=== PATIENT | female | born 1985 | race Caucasian/White ===

== ENCOUNTER 2019-02-25 02:46 | Inpatient (IN) ==
[2019-02-25 03:25] LABS: URINE SOURCE CLEAN CATCH
[2019-02-25 03:37] LABS: BE -16.2 mmoll (-3.0-3.0); BLOOD TYPE ARTERIAL; HCO3-(ACT) 11.9 mmoll (20.0-26.0); METHB 0.5 % (0.0-1.5); O2(CT) 16.9 mL/dL (15.0-23.0); O2HB 82.4 % (95.0-99.0); PCO2(98.6) 40 mmHg (35-45); PO2(98.6) 57 mmHg (60-100); SAMPLE BLOOD; SRATE 14 BPM; THB 14.6 g/dL (11.5-17.4); TVOL 550 mL
[2019-02-25 03:41] LABS: BILIRUBIN URINE NEGATIVE (NEGATIVE); BLOOD URINE SMALL (NEGATIVE); COLOR STRAW; GLUCOSE URINE 1000 mg/dL (NEGATIVE); KETONE URINE NEGATIVE (NEGATIVE); LEUKOCYTES URINE NEGATIVE (NEGATIVE); NITRITE URINE NEGATIVE (NEGATIVE); PH URINE 6.5; PROTEIN URINE NEGATIVE (NEGATIVE); SP GRAVITY URINE 1.005; TURBIDITY URINE CLEAR (CLEAR); UR EPITHELIAL CELLS <10 /HPF (<10); URINE BACTERIA NEGATIVE /HPF; URINE RBC <10 /HPF (<10); URINE WBC <10 /HPF (<10); UROBILINOGEN URINE NORMAL (NORMAL)
[2019-02-25 03:53] LABS: ACETAMINOPHEN < 1.2 ug/mL (10-30); AGAP 27; ALBUMIN 3.6 g/dL (3.5-5.0); ALKALINE PHOSPHATASE 212 U/L (32-104); BUN 6 mg/dL (8-22); CALCIUM 8.6 mg/dL (8.8-10.2); COSMO 292; CREATININE 0.7 mg/dL (0.5-0.9); ESTIMATED GFR > 60; GLUCOSE 243 mg/dL (70-104); GOT 278 U/L (10-30); GPT 73 U/L (10-36); SALICYLATES < 3.00 mg/dL (3-10); TCO2 13 mmol/L (25-35); TOTAL BILIRUBIN < 0.15 mg/dL (0.20-1.00)
[2019-02-25 04:04] LABS: CHLORIDE 101 mmol/L (98-107); POTASSIUM 5.5 mmol/L (3.5-5.1); SODIUM 140 mmol/L (136-145)
[2019-02-25 04:13] LABS: BASO# 0.11 X1000 (0.0-0.2); CK INDEX 0.8 (0.0-2.5); CK-MB 1.85 ng/mL (0.0-5.0); EOS# 0.17 X1000 (0.0-0.7); EOS% 1.5 % (0.0-10.0); HEMOGLOBIN 15.9 g/dL (12.0-16.0); IMM GRAN# 0.16 X1000 (0.0-0.04); IMM GRAN% 1.4 % (0.0-0.5); LYMPH# 4.59 X1000 (1.2-3.4); LYMPH% 40.3 % (20.5-51.1); MCH 33.5 PG (27-31); MCHC 31.8 g/dL (33-37); MCV 105.5 FL (81-99); MONO# 0.63 X1000 (0.11-0.59); MONO% 5.5 % (1.7-9.3); MPV 10.2 FL (7.4-10.4); NEUT# 5.73 X1000 (1.4-6.5); NEUT% 50.3 % (42.2-75.2); PLT 320 X1000 (130-400); RBC 4.74 XMIL (4.2-5.4); RDW 13.9 % (11.5-14.5); WBC 11.39 X1000 (4.8-10.8)
[2019-02-25 04:25] LABS: UR AMPHETAMINES QUAL NONE DETECTED (NONE DETECT); UR BARBITUATES QUAL NONE DETECTED (NONE DETECT); UR BENZODIAZEPIN QUAL NONE DETECTED (NONE DETECT); UR CANNABINOIDS QUAL NONE DETECTED (NONE DETECT); UR COCAINE QUAL NONE DETECTED (NONE DETECT); UR METHADONE QUAL NONE DETECTED (NONE DETECT); UR METHAMPHETAMINE QUAL NONE DETECTED (NONE DETECT); UR OPIATES QUAL NONE DETECTED (NONE DETECT); UR OXYCODONE QUAL NONE DETECTED (NONE DETECT); UR PCP QUAL NONE DETECTED (NONE DETECT); UR PROPOXYPHENE QUAL NONE DETECTED (NONE DETECT); UR TCA QUAL NONE DETECTED (NONE DETECT)
[2019-02-25 05:46] LABS: ALLEN TEST YES; BE -8.3 mmoll (-3.0-3.0); BLOOD TYPE ARTERIAL; HCO3-(ACT) 17.7 mmoll (20.0-26.0); METHB 0.9 % (0.0-1.5); O2(CT) 16.6 mL/dL (15.0-23.0); PCO2(98.6) 41 mmHg (35-45); SAMPLE BLOOD; SAO2 76.5 % (95.0-100.0); SRATE 16 BPM; THB 15.9 g/dL (11.5-17.4); TVOL 500 mL; pH(98.6) 7.26 (7.35-7.45)
[2019-02-25 05:47] LABS: MODALITY VENTILATOR; O2HB 74.5 % (95.0-99.0); PO2(98.6) 43 mmHg (60-100)
[2019-02-25 06:09] LABS: URINE SOURCE CATH
[2019-02-25 06:11] LABS: BILIRUBIN URINE NEGATIVE (NEGATIVE); BLOOD URINE TRACE (NEGATIVE); COLOR YELLOW; GLUCOSE URINE >1000 mg/dL (NEGATIVE); KETONE URINE NEGATIVE (NEGATIVE); LEUKOCYTES URINE NEGATIVE (NEGATIVE); NITRITE URINE NEGATIVE (NEGATIVE); PROTEIN URINE TRACE mg/dL (NEGATIVE); TURBIDITY URINE CLEAR (CLEAR); UROBILINOGEN URINE NORMAL (NORMAL)
[2019-02-25 06:16] LABS: UR EPITHELIAL CELLS <10 /HPF (<10); URINE BACTERIA NEGATIVE /HPF; URINE RBC <10 /HPF (<10); URINE WBC <10 /HPF (<10)
[2019-02-25 06:38] LABS: MODALITY VENTILATOR
[2019-02-25 06:39] LABS: pH(98.6) 7.11 (7.35-7.45)
[2019-02-25 06:40] LABS: SAO2 85.3 % (95.0-100.0)
[2019-02-25 10:37] LABS: I-STAT BE -6 mmoll (-2-3); I-STAT GLUCOSE 139 mg/dL (70-105); I-STAT K 3.6 mmoll (3.5-4.9); I-STAT SODIUM 135 mmoll (138-146); I-STAT TCO2 21 mmoll (23-27); I-STAT pH 7.374 (7.350-7.450)
[2019-02-25 11:56] LABS: AGAP 16; ALBUMIN 2.6 g/dL (3.5-5.0); ALKALINE PHOSPHATASE 168 U/L (32-104); BUN 8 mg/dL (8-22); CALCIUM 7.2 mg/dL (8.8-10.2); CHLORIDE 99 mmol/L (98-107); COSMO 263; CREATININE 0.6 mg/dL (0.5-0.9); ESTIMATED GFR > 60; GLUCOSE 135 mg/dL (70-104); GOT 382 U/L (10-30); GPT 100 U/L (10-36); POTASSIUM 3.9 mmol/L (3.5-5.1); SODIUM 131 mmol/L (136-145); TCO2 16 mmol/L (25-35); TOTAL BILIRUBIN 0.34 mg/dL (0.20-1.00); TOTAL PROTEIN 5.3 g/dL (6.3-8.3)
[2019-02-26 04:29] LABS: ALLEN TEST YES; BE 0.6 mmoll (-3.0-3.0); BLOOD TYPE ARTERIAL; HCO3-(ACT) 25.4 mmoll (20.0-26.0); METHB 1.5 % (0.0-1.5); O2HB 97.1 % (95.0-99.0); PCO2(98.6) 27 mmHg (35-45); PO2(98.6) 342 mmHg (60-100); SAMPLE BLOOD; SAO2 99.9 % (95.0-100.0); SRATE 20 BPM; THB 15.5 g/dL (11.5-17.4); TVOL 550 mL; pH(98.6) 7.52 (7.35-7.45)
[2019-02-26 04:30] LABS: MODALITY VENTILATOR
[2019-02-26 05:00] LABS: AGAP 18; BUN 6 mg/dL (8-22); CHLORIDE 94 mmol/L (98-107); COSMO 266; CREATININE 0.8 mg/dL (0.5-0.9); ESTIMATED GFR > 60; GLUCOSE 164 mg/dL (70-104); MAGNESIUM 1.8 mg/dL (1.5-2.7); POTASSIUM 2.9 mmol/L (3.5-5.1); SODIUM 132 mmol/L (136-145); TCO2 20 mmol/L (25-35)
[2019-02-26 05:04] LABS: CALCIUM 7.3 mg/dL (8.8-10.2)
[2019-02-26 05:15] LABS: BASO# 0.07 X1000 (0.0-0.2); BASO% 0.3 % (0.0-0.8); EOS# 0.02 X1000 (0.0-0.7); EOS% 0.1 % (0.0-10.0); HEMATOCRIT 42.7 % (37.0-47.0); HEMOGLOBIN 14.3 g/dL (12.0-16.0); IMM GRAN% 0.4 % (0.0-0.5); LYMPH# 2.39 X1000 (1.2-3.4); LYMPH% 8.7 % (20.5-51.1); MCH 33.7 PG (27-31); MCHC 33.5 g/dL (33-37); MCV 100.7 FL (81-99); MONO# 0.48 X1000 (0.11-0.59); MONO% 1.7 % (1.7-9.3); MPV 10.3 FL (7.4-10.4); NEUT# 24.45 X1000 (1.4-6.5); NEUT% 88.8 % (42.2-75.2); PLT 294 X1000 (130-400); RBC 4.24 XMIL (4.2-5.4); RDW 13.4 % (11.5-14.5); WBC 27.51 X1000 (4.8-10.8)
[2019-02-26 05:26] LABS: CHOLESTEROL 140 mg/dL (0-200); HDL 76 mg/dL (45-65); LDL 10 mg/dL; TRIGLYCERIDES 271 mg/dL (35-135); VLDL 54 mg/dL
[2019-02-26 07:37] LABS: BANDS 10 % (0-1); LYMPHS 14 % (21-51); SEGS 76 % (42-75)
[2019-02-27 04:28] LABS: ALLEN TEST YES; BE -2.8 mmoll (-3.0-3.0); BLOOD TYPE ARTERIAL; HCO3-(ACT) 22.7 mmoll (20.0-26.0); O2(CT) 17.3 mL/dL (15.0-23.0); O2HB 97.3 % (95.0-99.0); PCO2(98.6) 28 mmHg (35-45); PO2(98.6) 156 mmHg (60-100); SAMPLE BLOOD; SAO2 99.8 % (95.0-100.0); SRATE 20 BPM; THB 12.4 g/dL (11.5-17.4); TVOL 550 mL; pH(98.6) 7.46 (7.35-7.45)
[2019-02-27 04:29] LABS: MODALITY VENTILATOR
[2019-02-27 06:53] LABS: BASO# 0.28 X1000 (0.0-0.2); BASO% 1.6 % (0.0-0.8); EOS% 1.1 % (0.0-10.0); HEMATOCRIT 40.8 % (37.0-47.0); HEMOGLOBIN 13.4 g/dL (12.0-16.0); IMM GRAN# 0.14 X1000 (0.0-0.04); IMM GRAN% 0.8 % (0.0-0.5); LYMPH# 1.47 X1000 (1.2-3.4); LYMPH% 8.2 % (20.5-51.1); MCH 35.4 PG (27-31); MCHC 32.8 g/dL (33-37); MCV 107.7 FL (81-99); MONO% 3.9 % (1.7-9.3); MPV 10.9 FL (7.4-10.4); NEUT# 15.06 X1000 (1.4-6.5); NEUT% 84.4 % (42.2-75.2); PLT 156 X1000 (130-400); RBC 3.79 XMIL (4.2-5.4); RDW 14.5 % (11.5-14.5); WBC 17.85 X1000 (4.8-10.8)
[2019-02-27 09:01] LABS: AGAP 12; ALB/GLOB RATIO 0.9; ALBUMIN 2.5 g/dL (3.5-5.0); ALKALINE PHOSPHATASE 109 U/L (32-104); BUN 7 mg/dL (8-22); CALCIUM 7.8 mg/dL (8.8-10.2); CHLORIDE 100 mmol/L (98-107); COSMO 265; CREATININE 0.7 mg/dL (0.5-0.9); ESTIMATED GFR > 60; GLUCOSE 144 mg/dL (70-104); GOT 38 U/L (10-30); GPT 40 U/L (10-36); POTASSIUM 3.7 mmol/L (3.5-5.1); SODIUM 132 mmol/L (136-145); TCO2 20 mmol/L (25-35); TOTAL BILIRUBIN 1.11 mg/dL (0.20-1.00); TOTAL PROTEIN 5.4 g/dL (6.3-8.3)
[2019-02-28 04:20] LABS: ALLEN TEST YES; BE -1.9 mmoll (-3.0-3.0); BLOOD TYPE ARTERIAL; HCO3-(ACT) 23.4 mmoll (20.0-26.0); METHB 1.4 % (0.0-1.5); O2(CT) 14.1 mL/dL (15.0-23.0); O2HB 96.3 % (95.0-99.0); PCO2(98.6) 33 mmHg (35-45); PO2(98.6) 106 mmHg (60-100); SAMPLE BLOOD; SAO2 99.4 % (95.0-100.0); SRATE 14 BPM; THB 10.3 g/dL (11.5-17.4); TVOL 550 mL; pH(98.6) 7.43 (7.35-7.45)
[2019-02-28 04:23] LABS: MODALITY VENTILATOR
[2019-02-28 06:46] LABS: AGAP 6; ALB/GLOB RATIO 0.8; ALBUMIN 2.2 g/dL (3.5-5.0); ALKALINE PHOSPHATASE 123 U/L (32-104); BUN 10 mg/dL (8-22); CALCIUM 7.7 mg/dL (8.8-10.2); CHLORIDE 108 mmol/L (98-107); COSMO 277; CREATININE 0.7 mg/dL (0.5-0.9); ESTIMATED GFR > 60; GLUCOSE 109 mg/dL (70-104); GOT 39 U/L (10-30); GPT 30 U/L (10-36); POTASSIUM 3.5 mmol/L (3.5-5.1); SODIUM 139 mmol/L (136-145); TCO2 25 mmol/L (25-35); TOTAL BILIRUBIN 0.49 mg/dL (0.20-1.00); TOTAL PROTEIN 5.1 g/dL (6.3-8.3)
[2019-02-28 09:13] LABS: BASO# 0.01 X1000 (0.0-0.2); BASO% 0.1 % (0.0-0.8); EOS# 0.14 X1000 (0.0-0.7); EOS% 1.7 % (0.0-10.0); HEMATOCRIT 30.1 % (37.0-47.0); HEMOGLOBIN 9.3 g/dL (12.0-16.0); IMM GRAN# 0.03 X1000 (0.0-0.04); IMM GRAN% 0.4 % (0.0-0.5); LYMPH# 0.68 X1000 (1.2-3.4); MCH 33.3 PG (27-31); MCHC 30.9 g/dL (33-37); MCV 107.9 FL (81-99); MONO# 0.34 X1000 (0.11-0.59); MPV 10.5 FL (7.4-10.4); NEUT# 7.28 X1000 (1.4-6.5); NEUT% 85.8 % (42.2-75.2); PLT 135 X1000 (130-400); RBC 2.79 XMIL (4.2-5.4); WBC 8.48 X1000 (4.8-10.8)
[2019-02-28 10:14] LABS: BANDS 9 % (0-1); LYMPHS 11 % (21-51); MONO 1 % (1-9); SEGS 79 % (42-75)
[2019-02-28 10:15] LABS: HYPOCHROM 1+
[2019-02-28 10:23] LABS: HEPATITIS PROFILE ACUTE SEE COMMENTS
[2019-02-28 10:55] LABS: ALLEN TEST YES; BE 1.5 mmoll (-3.0-3.0); BLOOD TYPE ARTERIAL; HCO3-(ACT) 26.1 mmoll (20.0-26.0); METHB 0.7 % (0.0-1.5); O2(CT) 16.6 mL/dL (15.0-23.0); O2HB 97.3 % (95.0-99.0); PCO2(98.6) 33 mmHg (35-45); PO2(98.6) 118 mmHg (60-100); SAMPLE BLOOD; SAO2 99.7 % (95.0-100.0); pH(98.6) 7.48 (7.35-7.45)
[2019-02-28 10:57] LABS: MODALITY VENTILATOR
[2019-03-01 04:39] LABS: ALLEN TEST YES; BE -2.7 mmoll (-3.0-3.0); BLOOD TYPE ARTERIAL; HCO3-(ACT) 22.7 mmoll (20.0-26.0); METHB 0.9 % (0.0-1.5); O2(CT) 17.9 mL/dL (15.0-23.0); O2HB 94.4 % (95.0-99.0); PCO2(98.6) 36 mmHg (35-45); PO2(98.6) 73 mmHg (60-100); SAMPLE BLOOD; SAO2 97.2 % (95.0-100.0); THB 13.5 g/dL (11.5-17.4); pH(98.6) 7.39 (7.35-7.45)
[2019-03-01 04:41] LABS: MODALITY COOL AEROSOL
[2019-03-01 05:27] LABS: BASO# 0.01 X1000 (0.0-0.2); BASO% 0.2 % (0.0-0.8); EOS# 0.11 X1000 (0.0-0.7); EOS% 2.2 % (0.0-10.0); HEMATOCRIT 32.2 % (37.0-47.0); HEMOGLOBIN 9.9 g/dL (12.0-16.0); IMM GRAN# 0.04 X1000 (0.0-0.04); IMM GRAN% 0.8 % (0.0-0.5); LYMPH# 0.62 X1000 (1.2-3.4); LYMPH% 12.4 % (20.5-51.1); MCH 33.3 PG (27-31); MCHC 30.7 g/dL (33-37); MCV 108.4 FL (81-99); MONO# 0.39 X1000 (0.11-0.59); MONO% 7.8 % (1.7-9.3); NEUT# 3.81 X1000 (1.4-6.5); NEUT% 76.6 % (42.2-75.2); PLT 138 X1000 (130-400); RBC 2.97 XMIL (4.2-5.4); RDW 13.8 % (11.5-14.5); WBC 4.98 X1000 (4.8-10.8)
[2019-03-01 05:57] LABS: AGAP 13; ALBUMIN 2.8 g/dL (3.5-5.0); ALKALINE PHOSPHATASE 116 U/L (32-104); BUN 12 mg/dL (8-22); CALCIUM 8.1 mg/dL (8.8-10.2); CHLORIDE 111 mmol/L (98-107); COSMO 288; CREATININE 0.7 mg/dL (0.5-0.9); ESTIMATED GFR > 60; GLUCOSE 82 mg/dL (70-104); GOT 31 U/L (10-30); GPT 27 U/L (10-36); POTASSIUM 4.1 mmol/L (3.5-5.1); SODIUM 145 mmol/L (136-145); TCO2 21 mmol/L (25-35); TOTAL BILIRUBIN 0.45 mg/dL (0.20-1.00); TOTAL PROTEIN 5.7 g/dL (6.3-8.3)
[2019-03-02 05:23] LABS: ALLEN TEST YES; BE -1.2 mmoll (-3.0-3.0); BLOOD TYPE ARTERIAL; O2(CT) 17.7 mL/dL (15.0-23.0); O2HB 95.8 % (95.0-99.0); PCO2(98.6) 39 mmHg (35-45); PO2(98.6) 95 mmHg (60-100); SAMPLE BLOOD; SAO2 98.7 % (95.0-100.0); THB 13.1 g/dL (11.5-17.4); pH(98.6) 7.39 (7.35-7.45)
[2019-03-02 05:24] LABS: MODALITY CANNULA
[2019-03-02 06:25] LABS: ALB/GLOB RATIO 0.9; CALCIUM 9.4 mg/dL (8.8-10.2); CREATININE 1.8 mg/dL (0.5-0.9); POTASSIUM 3.5 mmol/L (3.5-5.1); TOTAL BILIRUBIN 0.44 mg/dL (0.20-1.00); TOTAL PROTEIN 6.4 g/dL (6.3-8.3)
[2019-03-02 06:33] LABS: HEMATOCRIT 33.3 % (37.0-47.0); HEMOGLOBIN 10.7 g/dL (12.0-16.0); MCHC 32.1 g/dL (33-37); MCV 105.7 FL (81-99); MPV 10.9 FL (7.4-10.4); RBC 3.15 XMIL (4.2-5.4); RDW 13.4 % (11.5-14.5); WBC 6.92 X1000 (4.8-10.8)
[2019-03-02 20:45] LABS: URINE SOURCE CLEAN CATCH
[2019-03-02 20:52] LABS: BILIRUBIN URINE NEGATIVE (NEGATIVE); BLOOD URINE SMALL (NEGATIVE); COLOR YELLOW; GLUCOSE URINE NEGATIVE (NEGATIVE); KETONE URINE NEGATIVE (NEGATIVE); LEUKOCYTES URINE TRACE (NEGATIVE); NITRITE URINE NEGATIVE (NEGATIVE); PROTEIN URINE 30 mg/dL (NEGATIVE); SP GRAVITY URINE 1.017; TURBIDITY URINE CLEAR (CLEAR); UROBILINOGEN URINE NORMAL (NORMAL)
[2019-03-02 21:02] LABS: UR EPITHELIAL CELLS <10 /HPF (<10); URINE BACTERIA NEGATIVE /HPF
[2019-03-02 21:12] LABS: UR CREAT RANDOM 88.1 mg/dL (11-20); UR PROT RANDOM 46.2 mg/dL
[2019-03-03 06:50] LABS: HEMOGLOBIN 11.2 g/dL (12.0-16.0); MCH 32.9 PG (27-31); MCV 102.9 FL (81-99); MPV 11.1 FL (7.4-10.4); RBC 3.4 XMIL (4.2-5.4); RDW 13.2 % (11.5-14.5); WBC 6.66 X1000 (4.8-10.8)
[2019-03-03 07:10] LABS: CALCIUM 8.8 mg/dL (8.8-10.2); CREATININE 2.4 mg/dL (0.5-0.9); POTASSIUM 2.8 mmol/L (3.5-5.1)
[2019-03-04 06:06] LABS: HEMATOCRIT 32.3 % (37.0-47.0); HEMOGLOBIN 10.4 g/dL (12.0-16.0); MCHC 32.2 g/dL (33-37); MCV 102.5 FL (81-99); MPV 10.8 FL (7.4-10.4); RBC 3.15 XMIL (4.2-5.4); WBC 7.59 X1000 (4.8-10.8)
[2019-03-04 06:31] LABS: CREATININE 2.2 mg/dL (0.5-0.9); POTASSIUM 3.2 mmol/L (3.5-5.1)
[2019-03-05 07:11] LABS: HEMATOCRIT 31.5 % (37.0-47.0); MCH 33.8 PG (27-31); MCHC 31.7 g/dL (33-37); MCV 106.4 FL (81-99); MPV 10.9 FL (7.4-10.4); RBC 2.96 XMIL (4.2-5.4); RDW 13.4 % (11.5-14.5); WBC 7.2 X1000 (4.8-10.8)
[2019-03-05 07:26] LABS: CALCIUM 8.8 mg/dL (8.8-10.2); CREATININE 2.3 mg/dL (0.5-0.9); POTASSIUM 3.1 mmol/L (3.5-5.1)
[2019-03-06 06:42] LABS: HEMATOCRIT 30.7 % (37.0-47.0); HEMOGLOBIN 9.8 g/dL (12.0-16.0); MCH 33.9 PG (27-31); MCHC 31.9 g/dL (33-37); MCV 106.2 FL (81-99); MPV 10.8 FL (7.4-10.4); RBC 2.89 XMIL (4.2-5.4); RDW 13.4 % (11.5-14.5); WBC 8.42 X1000 (4.8-10.8)
[2019-03-06 07:15] LABS: ALBUMIN 3.1 g/dL (3.5-5.0); CALCIUM 9.3 mg/dL (8.8-10.2); CREATININE 2.3 mg/dL (0.5-0.9); PHOSPHORUS 3.6 mg/dL (2.7-4.5)
[2019-03-07 05:30] LABS: ALBUMIN 3.5 g/dL (3.5-5.0); CALCIUM 9.5 mg/dL (8.8-10.2); CREATININE 2.2 mg/dL (0.5-0.9); PHOSPHORUS 4.3 mg/dL (2.7-4.5); POTASSIUM 4.2 mmol/L (3.5-5.1)
[2019-03-07 05:37] LABS: HEMATOCRIT 35.3 % (37.0-47.0); HEMOGLOBIN 11.1 g/dL (12.0-16.0); MCH 33.6 PG (27-31); MCHC 31.4 g/dL (33-37); MPV 10.5 FL (7.4-10.4); RBC 3.3 XMIL (4.2-5.4); RDW 13.8 % (11.5-14.5); WBC 10.11 X1000 (4.8-10.8)
[2019-03-08 06:25] LABS: HEMATOCRIT 33.6 % (37.0-47.0); HEMOGLOBIN 10.7 g/dL (12.0-16.0); MCH 33.9 PG (27-31); MCHC 31.8 g/dL (33-37); MCV 106.3 FL (81-99); MPV 10.2 FL (7.4-10.4); RBC 3.16 XMIL (4.2-5.4); RDW 13.4 % (11.5-14.5); WBC 7.46 X1000 (4.8-10.8)
[2019-03-08 06:31] LABS: ALBUMIN 3.5 g/dL (3.5-5.0); CALCIUM 9.5 mg/dL (8.8-10.2); CREATININE 2.2 mg/dL (0.5-0.9); PHOSPHORUS 4.8 mg/dL (2.7-4.5); POTASSIUM 4.2 mmol/L (3.5-5.1)
[2019-03-09 08:55] LABS: HEMATOCRIT 36.9 % (37.0-47.0); HEMOGLOBIN 11.7 g/dL (12.0-16.0); MCH 33.1 PG (27-31); MCHC 31.7 g/dL (33-37); MCV 104.5 FL (81-99); RBC 3.53 XMIL (4.2-5.4); RDW 13.1 % (11.5-14.5); WBC 7.05 X1000 (4.8-10.8)
[2019-03-09 09:37] LABS: ALBUMIN 3.4 g/dL (3.5-5.0); CALCIUM 9.9 mg/dL (8.8-10.2); CREATININE 1.9 mg/dL (0.5-0.9); PHOSPHORUS 4.6 mg/dL (2.7-4.5); POTASSIUM 4.3 mmol/L (3.5-5.1)
[2019-03-09 16:18] VITALS: BP 133/92
== END 2019-03-09 19:00 | disposition home or self-care (01) | DRG 314 ==
LOC: EDBD → P.ED 02:46 → ICU 04:36 → SUATTDRO 04:36 → 2N 03-04 01:11
PROVIDERS: ATTEND Internal Medicine